=== PATIENT | female | born 1995 | race Caucasian/White ===

== ENCOUNTER 2018-01-28 01:21 | Day surgery (SDC) | payer SELFPAY ==
[2018-01-28 02:01] VITALS: BMI 23.7
== END 2018-01-28 02:25 | disposition home or self-care (01) ==
LOC: L&D/OP 01:21
PROVIDERS: ATTEND Family Medicine
DX: O47.9 False labor, unspecified (principal); Z79.899 Other long term (current) drug therapy; Z88.6 Allergy status to analgesic agent; Z88.8 Allergy status to other drugs, medicaments and biological substances
CPT/HCPCS: 99282

== ENCOUNTER 2018-01-28 05:12 | Inpatient (IN) | payer OTHER, SELFPAY ==
[2018-01-28 05:33] VITALS: BMI 23.7
[2018-01-28] MEDS ORDERED: Butorphanol Tartrate 1 MG/ML VIAL SLOW IVP PRN (05:37)
[2018-01-28] MEDS ORDERED: Promethazine HCl 25 MG/ML VIAL IM PRN (05:37)
[2018-01-28] MEDS ORDERED: HYDROcodone/Acetaminophen 5/325 mg Tablet PO PRN ×3 (05:37→16:04)
[2018-01-28] MEDS ORDERED: Ondansetron HCl/PF 4 MG/2 ML Vial IVP PRN (05:37)
[2018-01-28] MEDS ORDERED: Lidocaine 1% (PF) 30 ML VIAL SC PRN (05:37)
--- NOTE | 2018-01-28 05:45 | PDOC.EVN ---
Event Note - Event Note Event Note: OBGYN Admisison H&P: H&P dictated. DX: early labor at full term, 23 yo G1. Plan: Admit to L&D. Check GBS status. Please see dictated H&P. Allergy to ibuprofen and sudafed noted.
--- NOTE | 2018-01-28 06:23 | HP ---
DATE OF SERVICE: 01/28/2018 TIME: 0540 hours. LOCATION: Labor and Delivery. The patient of Dr. Obrien. CHIEF COMPLAINT: Contractions. HISTORY OF PRESENT ILLNESS: This is a 23-year-old G1 at 40 weeks and 3 days, patient of Dr. Mccarthy, wh o was seen earlier this morning at around 2 in the morning with a complaint of contractions, but was sent home as she had not made cervical change from 3 cm. At that time, she was observed and found to make no cervical change after her observation period and so she was released. She returns now with increased contractions. REVIEW OF SYSTEMS: Complete review of systems was performed and is otherwise negative unless specifi ed in the [facility]. Current gestational age is 40 weeks and 3 days, dating criteria is the last menstrual period. OB HISTORY: She is a G1, P0, current complications are none. CURRENT MEDICATIONS: vitamins. PREVIOUS SURGERIES: [place] teeth removal. ALLERGIES: Stated are to IBUPROFEN and PSEUDOEPHEDRINE. SOCIAL HISTORY: Negative for smoking, tobacco, or drug use. PHYSICAL EXAMINATION: VITAL SIGNS: Stable and she is afebrile. She is normotensive. GENERAL: Clinically, she is in no acute distress, but has contraction discomfort. ABDOMEN: Soft and nontender and size consistent with dates. Estimated weight is approximately 6-1/2 pounds. Cervical exam reveals cervix that is now 4 cm dilated. No evidence of ruptured membr anes. While the first examination previously was 3 cm dilated, 71% effaced, -1. Exam is now about 4 /80%/-1. Presentation is felt to be cephalic. There is no vaginal bleeding. On tocodynamometer and monitoring: heart tones are in the 130s to 140s with moderate maddie iability. Contractions are irregular, but present on tocodynamometer. ASSESSMENT: This is a 23-year-old primigravida at 40 weeks and 3 days, patient of Dr. Mccarthy, who is h aving persistent contractions at full term and is now changed to 4 cm. She is in early labor. PLAN: 1. Admission to Labor and Delivery. 2. Pain control. 3. Check GBS status and penicillin if positive. 4. No evidence of hypertension at this time.
[2018-01-28 06:35] LABS: Hemoglobin 14.3 g/dL (12.0-16.0); Mean Corpuscular Hemoglobin 31.1 pg (27.0-31.0); Mean Corpuscular Volume 91.4 fL (78.0-98.0); Mean Platelet Volume 8.4 fL (7.4-10.4); Platelet Count 165 thou/uL (130-400); RBC Distribution Width 12.4 % (11.5-14.5); Red Blood Cell (RBC) Count 4.59 mill/uL (4.20-5.40); White Blood Cell (WBC) Count 10.6 thou/uL (4.8-10.8)
[2018-01-28 07:15] LABS: Syphilis Antibody Nonreactive (Nonreactive); Syphilis Antibody Index 0.05 S/CO (<1.00 Non-Reactive)
[2018-01-28 07:16] LABS: HBSAg Index 0.15 S/CO (0-0.99); HIV (1/2) Antibody/Antigen Non-Reactive (NonReactive); HIV 1/2 INDEX 0.13 S/CO (<1.00); Hep B Surf Ag Non-Reactive S/CO (NonReactive)
[2018-01-28] MEDS: NS / Oxytocin 40 units/1000ml 1,000 ML IV PRN ×2 (12:37→13:55)
[2018-01-28] MEDS: Ibuprofen 800 MG TAB PO SCH (15:20)
[2018-01-28] MEDS: Lactated Ringer's 1,000 ML IV SCH ×2 (15:44→15:45)
[2018-01-28] MEDS ORDERED: Preparation H Ointment 28 GM TUBE PR PRN (16:04)
[2018-01-28] MEDS ORDERED: Milk Of Magnesia 30 ML UDCUP PO PRN (16:04)
[2018-01-28] MEDS ORDERED: Adacel (T-DAP) 0.5 ML VIAL IM ONE (16:04)
[2018-01-28] MEDS ORDERED: NS / Oxytocin 40 units/1000ml 1,000 ML IV SCH (16:04)
[2018-01-28] MEDS ORDERED: Bisacodyl 10 MG SUPP PR PRN (16:04)
[2018-01-28] MEDS ORDERED: Benzocaine/Menthol 20-0.5% 60 ML CAN TOP PRN (16:04)
[2018-01-28] MEDS: Ferrous Sulfate 325 MG TAB PO SCH (17:18)
[2018-01-28] MEDS: Docusate Calcium (SURFAK) 240 MG CAP PO SCH (21:37)
[2018-01-29] MEDS: Ibuprofen 800 MG TAB PO SCH ×3 (00:21→15:27)
[2018-01-29] MEDS: Docusate Calcium (SURFAK) 240 MG CAP PO SCH (08:46)
[2018-01-29] MEDS: Ferrous Sulfate 325 MG TAB PO SCH (08:48)
[2018-01-29 14:11] VITALS: BP 103/56; TEMP 98.2
--- NOTE | 2018-01-30 08:18 | PDOC.PP ---
Post Progress Note Post Day #: 1 Subjective: Late entry - note is for 01/29/18 - Doing well, well, no pain, wants to go home. PO intake tolerated: yes Flatus: yes Ambulation: yes Weight Weight 134 lb - Physical Examination General: NAD Cardiovascular: no m/r/g, RRR Respiratory: clear to auscultation bilaterally, non-labored breathing Abdominal: + bowel sounds, lochia, no distention, appropriately TTP Result Diagrams: 01/28/18 06:20 Additional Labs: Post Labs Blood Type O POSITIVE 01/28/18 06:20 Hep Bs Antigen Non-Reactive S/CO (NonReactive) 01/28/18 06:20 (1) Vaginal delivery Code(s): O80 - ENCOUNTER FOR FULL-TERM UNCOMPLICATED DELIVERY Status: Acute - Assessment/Plan Routine PP care D/C today PM F/U in 6 weeks Baby will see me tomorrow 01/30 for repeat bili
--- NOTE | 2018-01-30 08:19 | PDISCHARGE ---
Discharge - Disposition Disposition: HOME - Patient Instructions Pre-Printed Education: Car Passenger Safety: Car Safety Seats, After a Vaginal , : When to Call the Doctor, Breast Care After , Nutrition While , Understanding Depression Additional Instructions: nothing vaginally,no heavy lifting and no strenuous exercise. Care Plan Goals: FOCUS: Transition from Acute Care after Discharge GOAL: Successful transition to care in the community YOUR TASKS: (1) review all information outlined in your discharge packet (2) follow any instructions outlined in your discharge packet (3) contact your primary care provider if you have questions or need additional assistance - Referrals and PCP Follow-Up Referrals and PCP Follow-Up: Brody Mccarthy MD [Primary Care Provider] - (6 weeks) - Activity Instructions Activity:: Activity Restrictions (Pelvic rest) - Nourishment Instructions Nourishment:: Regular Diet - Therapy Instructions Therapies:: Not Applicable - Equipment/Supply Instructions Equipment/Supplies:: Not Applicable - IV Therapy Instructions IV Therapy:: Not Applicable
== END 2018-01-29 16:30 | disposition home or self-care (01) | DRG 807 ==
LOC: L&D/OP 05:12 → L&D-LIB 05:59 → 3SW 16:16
PROVIDERS: ADMIT Family Medicine; ATTEND Family Medicine
PROC: 10E0XZZ Delivery of Products of Conception, External Approach (ICD-10-PCS; principal; 2018-01-28)
PROC: 0KQM0ZZ Repair Perineum Muscle, Open Approach (ICD-10-PCS; 2018-01-28)
DX: O70.1 Second degree perineal laceration during delivery (principal); Z37.0 Single live birth; Z3A.40 40 weeks gestation of pregnancy; Z88.6 Allergy status to analgesic agent; Z88.8 Allergy status to other drugs, medicaments and biological substances
CPT/HCPCS: 85027; 86780; 86850; 86900; 86901; 87340; 87389; 90471; 90686; 99285; G0008; J2001

== ENCOUNTER 2019-06-14 01:38 | Inpatient (IN) | payer OTHER ==
[2019-06-14] MEDS ORDERED: hydrALAZINE 20 MG/ML VIAL SLOW IVP PRN ×2 (02:42→10:02)
[2019-06-14] MEDS ORDERED: Acetaminophen 500 MG TAB PO PRN (02:42)
[2019-06-14] MEDS ORDERED: Promethazine HCl 25 MG/ML VIAL IM PRN (02:42)
[2019-06-14] MEDS ORDERED: Lactated Ringer's 1,000 ML IV SCH ×2 (02:42)
[2019-06-14] MEDS ORDERED: Ondansetron PF 4 MG/2 ML Vial IVP PRN (02:42)
[2019-06-14] MEDS ORDERED: Butorphanol Tartrate 1 MG/ML VIAL SLOW IVP PRN (02:42)
[2019-06-14] MEDS ORDERED: NS w/ Oxytocin 10 units 500 ML IV SCH ×2 (02:45)
[2019-06-14] MEDS ORDERED: Carboprost 250 MCG/ML AMP IM PRN (02:45)
[2019-06-14] MEDS ORDERED: Acetaminophen/Codeine 30-300mg Tablet PO PRN (02:45)
[2019-06-14] MEDS ORDERED: Misoprostol 200 MCG TAB RC PRN (02:45)
[2019-06-14] MEDS ORDERED: NS / Oxytocin 40 units/1000ml 1,000 ML IV SCH ×2 (02:45→10:02)
[2019-06-14] MEDS ORDERED: Lidocaine 1% (PF) 30 ML VIAL SC PRN (02:45)
[2019-06-14] MEDS ORDERED: Methylergonovine 0.2 MG/ML VIAL IM PRN (02:45)
[2019-06-14 03:33] LABS: Hemoglobin 11.9 g/dL (12.0-16.0); Mean Corpuscular HGB CONC 33.5 g/dL (32.0-36.0); Mean Corpuscular Hemoglobin 29.2 pg (27.0-31.0); Mean Corpuscular Volume 87.1 fL (78.0-98.0); Mean Platelet Volume 8.7 fL (7.4-10.4); Platelet Count 168 thou/uL (130-400); RBC Distribution Width 13.1 % (11.5-14.5); Red Blood Cell (RBC) Count 4.06 mill/uL (4.20-5.40); White Blood Cell (WBC) Count 8.4 thou/uL (4.8-10.8)
[2019-06-14 04:05] LABS: HBSAg Index 0.23 S/CO (0-0.99); Hep B Surf Ag Non-Reactive S/CO (NonReactive)
[2019-06-14 04:54] VITALS: BMI 23.9
[2019-06-14 05:44] LABS: Syphilis Antibody Nonreactive (Nonreactive); Syphilis Antibody Index 0.05 S/CO (<1.00 Non-Reactive)
--- NOTE | 2019-06-14 08:36 | PDOC.LDHP ---
Labor and Delivery H&P Chief complaint: contractions HPI: at 40 weeks with onset of contractions this evening. Worsening. Now presented to L&D. No LOF. No VB. Good movement. Current gestational age (weeks): 40 Dating criteria: first trimester ultrasound Grav: 2 Para: 1 Current complications: none Abnormal US findings: No Current medications: pre-demond vitamins Allergies/Adverse Reactions: Allergies Allergy/AdvReac Type Severity Reaction Status Date / Time ibuprofen Allergy Hives Verified 01/28/18 05:24 [From DayQuil Sinus Pressure/Pain] pseudoephedrine Allergy Hives Verified 01/28/18 05:24 [From DayQuil Sinus Pressure/Pain] Social history: none - Physical Exam Vital signs reviewed and normal: yes General: NAD, breathing through contractions Heart: RRR Lungs: CTAB Abdomen: gravid Extremeties: no edema FHT: category 1, variability present [place] contractions every: 2-7 minutes - Vaginal Exam cm dilated: 4 Effacement: 75% Station: -2 - OB Labs Blood type: O RH: positive Antibody Screen: negative HIV: negative RPR: negative HEPSAg: negative 1 hour GCT: positive 3 hour GTT: All 4 values normal GBS: negative Urine drug screen: not done Rubella: immune - Assessment L&D Assessment: term patient in labor - Plan Plan: admit to L&D, informed consent obtained, other (Patient desires low intervention)
--- NOTE | 2019-06-14 08:39 | PDOC.OPDEL ---
OB Operative/Delivery Note Delivery Dr/Surgeon: Fabio Pre-Delivery Diagnosis: active labor Procedure/Post Delivery Dx: spontaneous vaginal delivery (Head OA, no nuchal cord, shoulders and body easily followed, placed on mother's chest, cord clamped and cut, cord blood collected and sent.) Weeks gestation: 40 Anesthesia: local - Findings A Sex: male - 1 min: 9 - 5 min: 9 - Additional Findings/Plan Placenta delivered: spontaneous Repaired Obstetrical Laceration: 1st degree (Repaired with 3.0 vicryl suture in running fashion under local ansethesia) Estimated blood loss: 75 Post delivery plan: routine recovery
[2019-06-14] MEDS ORDERED: Milk Of Magnesia 30 ML UDCUP PO PRN (10:02)
[2019-06-14] MEDS ORDERED: Bisacodyl 10 MG SUPP PR PRN (10:02)
[2019-06-14] MEDS ORDERED: Benzocaine-Menthol 82.5 ML CAN TOP PRN (10:02)
[2019-06-14] MEDS ORDERED: HYDROcodone/Acetaminophen 5/325 mg Tablet PO PRN (10:02)
[2019-06-14] MEDS ORDERED: Lanolin Ointment 7 GM TUBE TOP PRN (10:02)
[2019-06-14] MEDS ORDERED: Docusate Calcium (SURFAK) 240 MG CAP PO SCH (10:15)
[2019-06-14] MEDS: Ibuprofen 800 MG TAB PO PRN (16:32)
[2019-06-14] MEDS: Ferrous Sulfate 325 MG TAB PO SCH (18:20)
[2019-06-15] MEDS: Docusate Calcium (SURFAK) 240 MG CAP PO SCH ×2 (00:13→09:49)
[2019-06-15] MEDS: Ibuprofen 800 MG TAB PO PRN (00:13)
[2019-06-15 08:36] VITALS: BP 107/53; TEMP 98.5
[2019-06-15] MEDS: Ferrous Sulfate 325 MG TAB PO SCH (09:50)
--- NOTE | 2019-06-15 12:13 | PDOC.PP ---
Post Progress Note Post Day #: 1 Subjective: Doing well. No complaints. Cramping some yesterday but better with motrin. well. Wants to go home. PO intake tolerated: yes Flatus: yes Ambulation: yes Vital Signs (12 hours) Temp Pulse Resp BP Pulse Ox 06/15/19 07:00 98.5 F 90 20 107/53 L 98 Weight Weight 135 lb 4.762 oz - Physical Examination General: NAD Cardiovascular: no m/r/g, RRR Respiratory: clear to auscultation bilaterally, non-labored breathing Abdominal: + bowel sounds, lochia, no distention, appropriately TTP Extremities: negative homans (B) Neurological: no gross focal deficits Psychiatric: A&Ox3 Result Diagrams: 06/14/19 03:10 Additional Labs: Post Labs Blood Type O POSITIVE 06/14/19 03:10 Hep Bs Antigen Non-Reactive S/CO (NonReactive) 06/14/19 03:10 (1) Vaginal delivery Code(s): O80 - ENCOUNTER FOR FULL-TERM UNCOMPLICATED DELIVERY Status: Acute - Assessment/Plan Routine PP care D/C home F/U in 1 day with baby and 6 weeks for PP visit
== END 2019-06-15 16:00 | disposition home or self-care (01) | DRG 807 ==
LOC: L&D/OP 01:38 → L&D-LIB 02:37 → 3SW 11:54
PROVIDERS: ADMIT Family Medicine; ATTEND Family Medicine
PROC: 10E0XZZ Delivery of Products of Conception, External Approach (ICD-10-PCS; principal; 2019-06-14)
PROC: 0HQ9XZZ Repair Perineum Skin, External Approach (ICD-10-PCS; 2019-06-14)
DX: O70.0 First degree perineal laceration during delivery (principal); Z37.0 Single live birth; Z3A.40 40 weeks gestation of pregnancy
CPT/HCPCS: 36415; 85027; 86780; 86850; 86900; 86901; 87340